=== PATIENT | male | born 1960 ===

== ENCOUNTER 2021-04-24 16:36 | Emergency (ER) | payer BC ==
[2021-04-24 17:53] LABS: Absolute Lymphocytes (CBC) 1.3 K/uL (0.7-4.9); Hematocrit 49.6 % (39.6-49.0); MPV 9.5 fL (7.6-11.3); RBC Red Blood Cell Count 6.01 M/uL (4.33-5.43)
[2021-04-24 18:17] LABS: BUN Blood Urea Nitrogen 20 mg/dL (7-18); Bicarbonate 26 mmol/L (21-32); Potassium 4.4 mmol/L (3.5-5.1); Sodium Level 130 mmol/L (136-145)
[2021-04-24 18:25] LABS: Glucose Level 592 mg/dL (74-106)
[2021-04-24] MEDS ORDERED: NA CHLORIDE 0.9% 1,000 ML ONE (18:44)
[2021-04-24] MEDS ORDERED: INSULIN -REGULAR HUMAN 50 UNIT/0.5 ML ML ONE ×2 (18:44→20:47)
--- NOTE | 2021-04-24 21:28 | EDPHYS ---
Physician Documentation [facility] Name: Arthur Oconnor Age: 61 yrs Sex: Male : 1960 Arrival Date: 04/24/2021 Time: 16:39 Bed 12 Private MD: ED Physician Misbah Zamorano HPI: 04/24 21:05 This 61 yrs old Male presents to ER via Wheelchair with complaints of High Blood Sugar. jr8 21:05 The patient has experienced a previous episode. The patient has not recently seen a new [facility] physician. This is a 61-year-old male patient that presented to the emergency room with complaints of elevated glucose and a sensation of feeling "foggy ". Patient stated that he has been out of his diabetic medications due to the holidays and not been able to get a hold of his primary care.. Historical: - Allergies: 17:02 No Known Allergies; iw - Home Meds: 17:02 metformin Oral [Active]; iw - PMHx: 17:02 Diabetes mellitus; iw - PSHx: 17:02 None; iw - Immunization history:: Client reports having NOT received the Covid vaccine. - Social history:: Smoking status: Smoking status: Patient denies any tobacco usage or history of. ROS: 21:05 Eyes: Negative for injury, pain, redness, and discharge, ENT: Negative for injury, jr8 pain, and discharge, Neck: Negative for injury, pain, and swelling, Cardiovascular: Negative for chest pain, palpitations, and edema, Respiratory: Negative for shortness of breath, cough, wheezing, and pleuritic chest pain, Abdomen/GI: Negative for abdominal pain, nausea, vomiting, diarrhea, and constipation, Back: Negative for injury and pain, MS/Extremity: Negative for injury and deformity, Skin: Negative for injury, rash, and discoloration, Neuro: Negative for headache, weakness, numbness, tingling, and seizure. Exam: 21:05 Constitutional: This is a well developed, well nourished patient who is awake, alert, jr8 and in no acute distress. ENT: Nares patent. No nasal discharge, no septal abnormalities noted. Tympanic membranes are normal and external auditory canals are clear. Oropharynx with no redness, swelling, or masses, exudates, or evidence of obstruction, uvula midline. Mucous membranes moist. Cardiovascular: Regular rate and rhythm with a normal S1 and S2. No gallops, murmurs, or rubs. Normal PMI, no JVD. No pulse deficits. Respiratory: Lungs have equal breath sounds bilaterally, clear to auscultation and percussion. No rales, rhonchi or wheezes noted. No increased work of breathing, no retractions or nasal flaring. Abdomen/GI: Soft, non-tender, with normal bowel sounds. No distension or tympany. No guarding or rebound. No evidence of tenderness throughout. Skin: Warm, dry with normal turgor. Normal color with no rashes, no lesions, and no evidence of cellulitis. MS/ Extremity: Pulses equal, no cyanosis. Neurovascular intact. Full, normal range of motion. Neuro: Awake and alert, GCS 15, oriented to person, place, time, and situation. Cranial nerves II-XII grossly intact. Motor strength 5/5 in all extremities. Sensory grossly intact. Vital Signs: 17:01 BP 135 / 113; Pulse 93; Resp 16; Temp 97.4; Pulse Ox 99% on R/A; Weight 90.72 kg; iw Height 5 ft. 9 in. (175.26 cm); 21:33 BP 128 / 82; Pulse 83; Resp 16; Temp 97.3(TE); Pulse Ox 99% ; lt3 17:01 Body Mass Index 29.53 (90.72 kg, 175.26 cm) iw MDM: 18:39 Patient medically screened. jr8 21:27 Data reviewed: vital signs, nurses notes, lab test result(s). Data interpreted: Pulse jr8 oximetry: on room air is 99 %. Interpretation: normal. Counseling: I had a detailed discussion with the patient and/or guardian regarding: the historical points, exam findings, and any diagnostic results supporting the discharge/admit diagnosis, lab results, the need for outpatient follow up, a family practitioner, to return to the emergency department if symptoms worsen or persist or if there are any questions or concerns that arise at home. ED course: Patient feeling much better. Will d/c home on his diabetic prescriptions. Knows to come back if worse . 04/24 17: Order name: CBC with Diff iw 04/24 17:04 Order name: Basic Metabolic Panel iw 04/24 17: Order name: Ketone, Serum iw 04/24 17:05 Order name: CBC with Automated Diff; Complete Time: 18:38 EDMS 04/24 17:05 Order name: Basic Metabolic Panel; Complete Time: 18:38 EDMS 04/24 17:05 Order name: Acetone Level; Complete Time: 18:38 EDMS 04/24 20:41 Order name: Glucose, Ancillary Testing; Complete Time: 21:04 EDMS 04/24 21:36 Order name: Glucose, Ancillary Testing; Complete Time: 21:58 EDMS Administered Medications: 18:48 Drug: NS 0.9% 1000 ml Route: IV; Rate: 1000 ml; Site: right antecubital; iw 20:00 Follow up: IV Status: Completed infusion; IV Intake: 1000ml bb 19:13 Drug: Insulin Regular Human 10 units {Co-Signature: heydi (Hue Fischer RN).} Route: iw IVP; Site: left antecubital; 21:50 Follow up: Response: No adverse reaction; Blood sugar is lowered bb 20:50 Drug: Insulin Regular Human 10 units {Co-Signature: lp1 (Mary Cerrato RN).} Route: IVP; bb Site: right antecubital; 21:51 Follow up: Response: Blood sugar is lowered bb Disposition: 04/25 04:39 Co-signature as Attending Physician, Misbah Zamorano MD I agree with the assessment and kyle plan of care. Disposition Summary: 04/24/21 21:28 Discharge Ordered Location: Home jr8 Problem: new jr8 Symptoms: have improved jr8 Condition: Stable jr8 Diagnosis - Type 2 diabetes mellitus with hyperglycemia jr8 Followup: jr8 - With: Private Physician - When: 2 - 3 days - Reason: Recheck today's complaints, Continuance of care, Re-evaluation by your physician Discharge Instructions: - Discharge Summary Sheet jr8 - Hyperglycemia jr8 Forms: - Medication Reconciliation Form jr8 - Thank You Letter jr8 - Antibiotic Education jr8 - Prescription Opioid Use jr8 Signatures: Dispatcher [employer] Misbah Dallas MD MD cha Ballard, Brenda, RN RN Cami Sebastian RN RN iw Elieser Peck PA PA jr8 Hue Cerrato RN lp1
--- NOTE | 2021-04-24 21:28 | ER ---
Nurse's Notes [facility] Name: Arthur Oconnor Age: 61 yrs Sex: Male : 1960 Arrival Date: 04/24/2021 Time: 16:39 Bed 12 Private MD: Diagnosis: Type 2 diabetes mellitus with hyperglycemia Presentation: 04/24 17:01 Chief complaint: Patient states: BS was over 600 and he ran out of his metformin about iw 10 days ago, has been unable to get a hold of his doctor , feels clammy , blurry vision, thirsty. Coronavirus screen: At this time, the client does not indicate any symptoms associated with coronavirus-19. Ebola Screen: Patient negative for fever greater than or equal to 101.5 degrees Fahrenheit, and additional compatible Ebola Virus Disease symptoms Patient denies exposure to infectious person. Patient denies travel to an Ebola-affected area in the 21 days before illness onset. No symptoms or risks identified at this time. Initial Sepsis Screen: Does the patient meet any 2 criteria? No. Patient's initial sepsis screen is negative. Does the patient have a suspected source of infection? No. Patient's initial sepsis screen is negative. Risk Assessment: Do you want to hurt yourself or someone else? Patient reports no desire to harm self or others. Onset of symptoms was April 24, 2021. 17:01 Method Of Arrival: Wheelchair iw 17:01 Acuity: LAUREN 2 iw Historical: - Allergies: 17:02 No Known Allergies; iw - Home Meds: 17:02 metformin Oral [Active]; iw - PMHx: 17:02 Diabetes mellitus; iw - PSHx: 17:02 None; iw - Immunization history:: Client reports having NOT received the Covid vaccine. - Social history:: Smoking status: Smoking status: Patient denies any tobacco usage or history of. Screenin:26 Abuse screen: Denies threats or abuse. Denies injuries from another. Nutritional iw screening: No deficits noted. Tuberculosis screening: No symptoms or risk factors identified. Fall Risk None identified. Assessment: 17:01 General: Appears in no apparent distress. Behavior is calm, cooperative. Pain: Denies iw pain. Neuro: Level of Consciousness is awake, alert, obeys commands, Oriented to person, place, time, situation, Moves all extremities. Full function. Cardiovascular: Patient's skin is warm and dry. Respiratory: Respiratory effort is even, unlabored, Respiratory pattern is regular. Derm: Skin. Musculoskeletal: Range of motion: intact in all extremities. 18:30 Reassessment: Patient appears in no apparent distress at this time. Patient and/or iw family updated on plan of care and expected duration. Pain level reassessed. Patient is alert, oriented x 3, equal unlabored respirations, skin warm/dry/pink. 21:51 Reassessment: Patient is alert, oriented x 3, equal unlabored respirations, skin bb warm/dry/pink. pt verbalized understanding of and agrees to plan of care discharge instructions given pt ambulated with steady gait to exit. Vital Signs: 17:01 BP 135 / 113; Pulse 93; Resp 16; Temp 97.4; Pulse Ox 99% on R/A; Weight 90.72 kg; iw Height 5 ft. 9 in. (175.26 cm); 21:33 BP 128 / 82; Pulse 83; Resp 16; Temp 97.3(TE); Pulse Ox 99% ; lt3 17:01 Body Mass Index 29.53 (90.72 kg, 175.26 cm) iw ED Course: 16:39 Patient arrived in ED. ds1 17:02 Triage completed. iw 17:04 Arm band placed on. iw 17:45 Initial lab(s) drawn, by me, sent to lab. Inserted saline lock: 22 gauge in right mb4 antecubital area, using aseptic technique. Blood collected. Missed attempt(s): 20 gauge in left antecubital area. Bleeding controlled, band aid applied, catheter tip intact. 17:46 CBC with Diff Sent. mb4 17:46 Basic Metabolic Panel Sent. mb4 17:46 Ketone, Serum Sent. mb4 17:46 Basic Metabolic Panel Sent. mb4 17:46 CBC with Automated Diff Sent. mb4 17:46 Acetone Level Sent. mb4 18:39 Elieser Peck PA is PHCP. jr8 18:39 Misbah Zamorano MD is Attending Physician. jr8 18:48 Cami Win, RN is Primary Nurse. iw 19:17 Primary Nurse role handed off by Cami Win, RN mw2 21:52 Patient has correct armband on for positive identification. bb 21:52 No provider procedures requiring assistance completed. IV discontinued, intact, bb bleeding controlled, No redness/swelling at site. Pressure dressing applied. Administered Medications: 18:48 Drug: NS 0.9% 1000 ml Route: IV; Rate: 1000 ml; Site: right antecubital; iw 20:00 Follow up: IV Status: Completed infusion; IV Intake: 1000ml bb 19:13 Drug: Insulin Regular Human 10 units {Co-Signature: bb (Hue Fischer RN).} Route: iw IVP; Site: left antecubital; 21:50 Follow up: Response: No adverse reaction; Blood sugar is lowered bb 20:50 Drug: Insulin Regular Human 10 units {Co-Signature: lp1 (Mary Cerrato RN).} Route: IVP; bb Site: right antecubital; 21:51 Follow up: Response: Blood sugar is lowered bb Intake: 20:00 IV: 1000ml; Total: 1000ml. bb Outcome: 21:28 Discharge ordered by MD. joseph 21:52 Discharged to home ambulatory. bb 21:52 Condition: stable 21:52 Discharge instructions given to patient, Instructed on discharge instructions, follow up and referral plans. medication usage, Demonstrated understanding of instructions, follow-up care, medications, Prescriptions given X 21:52 Patient left the ED. bb Signatures: Shayy Chahal ds1 Hue Fischer, RUTH ANN RN bb Cami Win, RN RN iw Elieser Peck PA PA jr8 Slava Myles mw2 Reina Smith mb4 Kaitlyn Allen lt3 Hue Fischer RN bb Mary Cerrato RN lp1
[2021-04-24 21:59] VITALS: O2SAT 99
[2021-04-24 22:02] VITALS: BP 128/82; TEMP 97.3
== END 2021-04-24 21:52 | disposition home or self-care (01) ==
LOC: ER 16:36
DX: E11.65 Type 2 diabetes mellitus with hyperglycemia (principal)
CPT/HCPCS: 85025; 80048; 36415; 82010; 82947 ×2; 99284; J7030